=== PATIENT | female | born 1955 | race Caucasian/White ===

== ENCOUNTER → 2016-10-29 | Day surgery (SDC) | payer OTHER ==
[~2016-10-29] MED LIST: ASPI325T PO; INCOBOTULINUMTOXINA 100 UNITS VIAL IM ONE; MAPA500T13 PO; SODIUM CHLORIDE 0.9% 10 ML VIAL ONE
--- NOTE | 2016-11-02 23:01 | M6 ---
cc: BRAD SUBRAMANIAN M.D. DATE 10/29/2016 1955 PROCEDURE Injection botulinum toxin type A (Xeomin) left trapezius and posterior cervical musculature. History and physical was completed and signed. Consent was signed. Procedure site was marked. Medications were listed and reconciled. Pain score was recorded. Allergies were noted. Time out was taken. Fluoroscopy time was recorded where applicable. Blood pressure cuff, pulse oximeter were applied. The patient was placed in the sitting position. The skin over the left trapezius and cervical area was prepped with alcohol. The areas of greatest spasticity were identified. A 27-gauge needle was used to inject a total of 200 units of Xeomin at six different locations corresponding to the areas of greatest spasticity. Following this, the patient was observed in recovery area with stable vital signs neurologically intact. W. MD WEI Xavier/ /9:04 AM /11:05 PM
== END | disposition home or self-care (01) ==
LOC: PHSDC 06:36
PROVIDERS: ATTEND Pain Medicine Interventional Pain Medicine
DX: M25.511 Pain in right shoulder (principal); M25.512 Pain in left shoulder
CPT/HCPCS: 64616; J0588; 64612